=== PATIENT | female | born 1985 | race Caucasian/White ===

== ENCOUNTER 2025-03-17 21:34 | Emergency (ER) | payer OTHER, SELFPAY ==
[2025-03-17 22:46] LABS: Hematocrit 31.1 % (36.0-47.0); Hemoglobin 9.7 g/dL (12.0-16.0); Mean Corpuscular HGB CONC 31.1 g/dL (32.0-36.0); Mean Corpuscular Hemoglobin 25.1 pg (27.0-31.0); Mean Corpuscular Volume 80.6 fl (78.0-98.0); Mean Platelet Volume 6.2 fL (7.4-10.4); Platelet Count 209 10x3/uL (130-400); RBC Distribution Width 16.3 % (11.5-14.5); Red Blood Cell (RBC) Count 3.86 mill/uL (4.20-5.40); White Blood Cell (WBC) Count 5.4 10x3/uL (4.8-10.8)
[2025-03-17] MEDS ORDERED: Acetaminophen 500 MG TAB ONE (22:48)
[2025-03-17] MEDS ORDERED: cefTRIAXone (ROCEPHIN) 2 GM VIAL ONE (22:49)
[2025-03-17] MEDS ORDERED: Sodium Chloride 0.9% 1,000 ML ONE (22:49)
[2025-03-17] MEDS ORDERED: Sodium Chloride 0.9% 100 ML ONE (22:49)
[2025-03-17] MEDS ORDERED: Acetaminophen 325 MG TAB ONE (22:50)
[2025-03-17 23:04] LABS: ALT (SGPT) 9 U/L (Less than 34); AST (SGOT) 28 U/L (11-34); Albumin 2.9 g/dL (3.1-4.5); Alkaline Phosphatase 97 U/L (40-110); Anion Gap 18 mmol/L (10-20); BUN (Urea Nitrogen) 15 mg/dL (7.0-18.7); Bilirubin, Total 0.8 mg/dL (0.3-1.2); Calc. Creatinine Clearance 0 mL/min (70-130); Calcium 9.1 mg/dL (7.8-10.44); Carbon Dioxide 20 mmol/L (22-29); Chloride 98 mmol/L (98-107); Estimated GFR 104; Globulin 5.3 g/dL (2.4-3.5); Glucose 80 mg/dL (70-105); Potassium 3.5 mmol/L (3.5-5.1); Protein, Total 8.2 g/dL (6.0-8.3); Sodium 132 mmol/L (136-145)
[2025-03-17 23:07] LABS: Troponin I 0.071 ng/mL (< 0.028)
[2025-03-17 23:34] LABS: Eosinophils 1 % (0-10); Lymphocytes 18 % (21-51); MDiff Complete? YES; Monocytes 16 % (0-10); Neutrophil 63 % (42-75); Platelet Adequacy Comment Appears Adequate
[2025-03-17 23:38] LABS: Anisocytosis SLIGHT = 6-15 cells (100X) (0-5/hpf); Polychromasia SLIGHT = 2-3 cells (100X) (0-2/hpf)
[2025-03-17 23:49] LABS: Bilirubin Negative (Negative); Blood, Urine Large (Negative); Glucose, Urine (Dipstick) Negative (Negative); Ketone, Urine Negative (Negative); Leukocyte Negative (Negative); Nitrite Negative (Negative); Protein, Urine (Dipstick) 30 mg/dL (Neg-Trace); Specific Gravity, Urine 1.015 (1.005-1.030); Urobilinogen 0.2 mg/dL (Less than 2)
[2025-03-17 23:54] LABS: Clarity Slightly Cloudy (Clear); RBC/HPF Greater than 50 HPF (0-3)
[2025-03-17 23:55] LABS: Bacteria/HPF Rare-Few HPF (None Seen); CAUTI Indications for Culture Fever or rigors; Squamous Epithelial 0-3 HPF (0-3); Transitional Epithelial 0-3 HPF (None Seen); Urine Culture Reflex No No; WBC/HPF 0-3 HPF (0-3)
[2025-03-18] MEDS ORDERED: Sodium Chloride 0.9% 250 ML 250 ML ONE (02:16)
[2025-03-18] MEDS ORDERED: Azithromycin 500 MG VIAL ONE (02:16)
[2025-03-18] MEDS ORDERED: Vancomycin HCl 500 MG VIAL ONE (02:58)
[2025-03-18] MEDS ORDERED: Vancomycin 1 GM VIAL ONE (02:58)
[2025-03-18] MEDS ORDERED: Sodium Chloride 0.9% 500 ML ONE (02:58)
== END 2025-03-18 03:28 | disposition short-term general hospital (02) ==
LOC: NAV ERS 21:34
DX: A41.9 Sepsis, unspecified organism (principal); R50.82 Postprocedural fever; I11.0 Hypertensive heart disease with heart failure; I50.9 Heart failure, unspecified; D64.9 Anemia, unspecified; R79.89 Other specified abnormal findings of blood chemistry; R91.8 Other nonspecific abnormal finding of lung field; Z79.82 Long term (current) use of aspirin; Z79.899 Other long term (current) drug therapy
CPT/HCPCS: 36556; 71045; 80053; 81001; 83605; 83880; 84484; 85025; 86140; 87040; 93005; 94760; 96374; 96375; J0456; J0696; J3370; J7030; J7050